=== PATIENT | male | born 1980 | race Two or more races ===

== ENCOUNTER 2023-02-10 01:04 | Outpatient (CLI) | payer MEDICAID | END 2023-02-10 01:05 | disposition critical access hospital (66) | LOC: EMS 01:04 | DX: F11.90 Opioid use, unspecified, uncomplicated (principal); F15.90 Other stimulant use, unspecified, uncomplicated | CPT/HCPCS: A0425; A0429; A0999 ==

== ENCOUNTER 2023-02-10 01:38 | Emergency (ER) | payer MEDICAID ==
[2023-02-10 02:04] VITALS: BP 165/115; O2SAT 99
--- NOTE | 2023-02-10 02:13 | ED Physician Documentation ---
History of Present Illness - Stated complaint Stated Complaint: AMS S/P METH, FENTANYL - Chief complaint Chief Complaint: Neuro - History obtained from History obtained from: Patient - Additonal information Additional information: BIBA. HPI from EMS and patient. Patient says he was smoking fentanyl earlier today which he suspects might have also been laced with methamphetamines. His HPI is vague; he is focused on describing a conversation he had with his relative about whether he would be able to pass a drug test. In refocussing patient on what he hopes I can do for/offer to him tonight, he says he just wants to go home at this time. I offered social work consult (would not be until the morning), telepsychiatric consult (experiencing significant delay in getting this done with another patie nt but can put him in queue if he wants this service). He denies SI, HI, AH, VH. He declines these services, is AAOX3, and again requests to leave /discharge from ED. I have no reason to hold this patient against his will. In the course of our brief discussion, he acknowledges he is making poor decisions when it comes to drug use. I encouraged him to seek inpatient help for his addiction (such as [facility]). Return precautions reviewed; I encouraged him to return at any time he wishes to be reevaluated. he declined physical exam and thus what is recorded on PE is by observation only Review of Systems Psychiatric: denies: Suicidal, Homicidal, Hallucinations, Delusions, Anxiety PD PAST MEDICAL HISTORY - Past Medical History Past Medical History: No - Past Surgical History Past Surgical History: No - Present Medications Home Medications: Ambulatory Orders Medication Instructions Recorded Confirmed No Known Home Medications 02/10/23 02/10/23 - Allergies Allergies/Adverse Reactions: Allergies Allergy/AdvReac Type Severity Reaction Status Date / Time No Known Drug Allergies Allergy Verified 02/10/23 01:55 - Social History Does the pt smoke?: No Smoking Status: Never smoker Does the pt drink ETOH?: Yes Does the pt have substance abuse?: Yes Substance Use and Type: Other PD ED PE NORMAL - Vitals Vital signs reviewed: Yes - General General: Alert and oriented X 3, No acute distress, Well developed/nourished - HEENT HEENT: EOMI - Neuro Neuro: Alert and oriented X 3, Normal speech Eye Opening: Spontaneous Motor: Obeys Commands Verbal: Oriented GCS Score: 15 Results - Vitals Vitals: Oxygen O2 Source Room air PD Medical Decision Making - ED course Complexity details: considered differential, d/w patient Departure - Departure Disposition: 01 Home, Self Care Clinical Impression: Opioid abuse Condition: Good Instructions: ED Narcotic Abuse Comments: If you are having problems with drug and/or alcohol use, consider contacting a detox/recovery facility. One such facility is [facility] which is located in [place]. The contact number for [facility] is . Forms: PCP List Discharge Date/Time: 02/10/23 02:38
[2023-02-10] MEDS ORDERED: NALOXONE HCL NASAL SPRAY KIT NAS STA (02:21)
== END 2023-02-10 02:38 | disposition home or self-care (01) ==
LOC: ED 01:38
DX: F11.10 Opioid abuse, uncomplicated (principal)
CPT/HCPCS: 99283; G2215